=== PATIENT | female | born 1970 ===

== ENCOUNTER 2019-07-02 09:15 | Inpatient (IN) | payer OTHER ==
[~2019-07-02] VITALS: Ht 162.6 cm; Wt 68.0 kg
== END 2019-07-09 14:07 | disposition home or self-care (01) | DRG 742 ==
LOC: O/R 07-07 07:15 → SURH 07-07 09:15 → O/R 07-07 09:15 → SURH 07-07 13:15 → OB/GYN 07-07 17:17
PROVIDERS: ADMIT Obstetrics & Gynecology Gynecology
PROC: 0UB60ZZ Excision of Left Fallopian Tube, Open Approach (ICD-10-PCS; 2019-07-07)
PROC: 0UB10ZZ Excision of Left Ovary, Open Approach (ICD-10-PCS; 2019-07-07)
PROC: 4A19X1Z Monitoring of Respiratory Capacity, External Approach (ICD-10-PCS; 2019-07-07)
PROC: 0UT90ZZ Resection of Uterus, Open Approach (ICD-10-PCS; principal; 2019-07-07 13:15)
DX: D25.1 Intramural leiomyoma of uterus (principal); J98.11 Atelectasis; D25.0 Submucous leiomyoma of uterus; D25.2 Subserosal leiomyoma of uterus; N72 Inflammatory disease of cervix uteri; N80.2 Endometriosis of fallopian tube; N83.12 Corpus luteum cyst of left ovary